=== PATIENT | female | born 1975 | race Caucasian/White ===

== ENCOUNTER 2019-01-21 04:16 | Inpatient (IN) | payer OTHER ==
[~2019-01-21] VITALS: Ht 149.9 cm; Wt 65.8 kg
[2019-01-21 04:18] VITALS: Ht 149.9 cm; Wt 65.8 kg
[2019-01-21 05:03] LABS: BASOPHIL % 0.8 % (0-2); PLATELET COUNT 163 x10^3mcL (130-400)
[2019-01-21 05:26] LABS: ALBUMIN 3.6 g/dL (3.4-5.0); BILIRUBIN TOTAL 0.71 mg/dL (0.20-1.00); CALCIUM 8.8 mg/dL (8.5-10.1); CARBON DIOXIDE 30.3 mmol/L (21-32); FREE T4 1.16 ng/dL (0.76-1.46); POTASSIUM SERUM 4.4 mmol/L (3.5-5.1); TOTAL PROTEIN, SERUM 8.1 g/dL (6.4-8.2)
[2019-01-21 05:29] LABS: CREATININE SERUM 6.2 mg/dL (0.6-1.0)
[2019-01-21] MEDS ORDERED: TOPROL XL25 MG (06:38)
[2019-01-21] MEDS ORDERED: RENA-VITE1 TAB PO (06:39)
[2019-01-21] MEDS ORDERED: HUMALOG100 U/ML (06:39)
[2019-01-21] MEDS ORDERED: LANTUS SOLOS100 U/M1 (06:39)
[2019-01-21 07:24] LABS: MAGNESIUM 2.3 mg/dL (1.8-2.4); PHOSPHOROUS 5.8 mg/dL (2.5-4.9)
[2019-01-21 11:26] VITALS: BP 150/60
[2019-01-21 16:45] VITALS: BP 170/80
[2019-01-21 22:00] VITALS: BP 202/67
[2019-01-22] VITALS (8 sets, daily range): BP systolic 150–212; BP diastolic 50–136
[2019-01-22 08:44] LABS: CARBON DIOXIDE 24.7 mmol/L (21-32); MAGNESIUM 2.5 mg/dL (1.8-2.4); PHOSPHOROUS 6.7 mg/dL (2.5-4.9); POTASSIUM SERUM 5.3 mmol/L (3.5-5.1)
[2019-01-22 08:52] LABS: CREATININE SERUM 8.3 mg/dL (0.6-1.0)
[2019-01-22 08:59] LABS: BASOPHIL % 0.1 % (0-2); PLATELET COUNT 130 x10^3mcL (130-400)
[2019-01-22 09:04] LABS: RED CELL DISTRIBUTION WIDTH 18.2 % (11.5-14.5)
[2019-01-23] VITALS (7 sets, daily range): BP systolic 149–175; BP diastolic 57–73
[2019-01-23 07:05] LABS: BASOPHIL % 0.7 % (0-2); PLATELET COUNT 249 x10^3mcL (130-400)
[2019-01-23 07:09] LABS: RED CELL DISTRIBUTION WIDTH 19.2 % (11.5-14.5)
[2019-01-23 08:24] LABS: CALCIUM 9.4 mg/dL (8.5-10.1); CARBON DIOXIDE 27.2 mmol/L (21-32); MAGNESIUM 2.5 mg/dL (1.8-2.4); POTASSIUM SERUM 4.5 mmol/L (3.5-5.1)
[2019-01-23 08:25] LABS: CREATININE SERUM 6.2 mg/dL (0.6-1.0)
[2019-01-23] MEDS ORDERED: NEURONTIN100 MG PO (10:05)
[2019-01-23] MEDS ORDERED: ZOF4 PO (10:05)
[2019-01-23 14:30] LABS: microscopic required? YES; urine erythrocyte 2+ (NEGATIVE)
== END 2019-01-23 15:53 | disposition home or self-care (01) | DRG 48 ==
LOC: ED 04:16 → DU 06:23 → MU 11:25 → DU 01-22 01:16
PROVIDERS: Emergency Medicine; ADMIT Internal Medicine
PROC: 5A1D70Z Performance of Urinary Filtration, Intermittent, Less than 6 Hours Per Day (ICD-10-PCS; principal; 2019-01-22)
DX: E11.40 Type 2 diabetes mellitus with diabetic neuropathy, unspecified (principal); E11.22 Type 2 diabetes mellitus with diabetic chronic kidney disease; I12.0 Hypertensive chronic kidney disease with stage 5 chronic kidney disease or end stage renal disease; G45.9 Transient cerebral ischemic attack, unspecified; N18.6 End stage renal disease; F41.9 Anxiety disorder, unspecified; D63.8 Anemia in other chronic diseases classified elsewhere; E11.65 Type 2 diabetes mellitus with hyperglycemia; Z99.2 Dependence on renal dialysis; Z79.84 Long term (current) use of oral hypoglycemic drugs; Z88.2 Allergy status to sulfonamides; Z88.1 Allergy status to other antibiotic agents; Z88.8 Allergy status to other drugs, medicaments and biological substances; Z91.018 Allergy to other foods; Z87.440 Personal history of urinary (tract) infections; Z79.899 Other long term (current) drug therapy
CPT/HCPCS: 82962; 83880; 84439; C9113; J0360; J1644; J7030; Q0092

== ENCOUNTER 2019-03-25 03:57 | Emergency (ER) | payer OTHER ==
[~2019-03-25] VITALS: Ht 149.9 cm; Wt 68.9 kg
[~2019-03-25 03:57] MED LIST: HUMALOG100 U/ML; LANTUS SOLOS100 U/M1; NEURONTIN100 MG PO; RENA-VITE1 TAB PO; TOPROL XL25 MG; ZOF4 PO
[2019-03-25 04:03] VITALS: Ht 149.9 cm; Wt 68.9 kg
[2019-03-25 04:46] LABS: PLATELET COUNT 129 x10^3mcL (130-400); RED CELL DISTRIBUTION WIDTH 19.3 % (11.5-14.5)
[2019-03-25 04:47] LABS: BASOPHIL % 0.5 % (0-2)
[2019-03-25 04:59] LABS: ALBUMIN 3.7 g/dL (3.4-5.0); BILIRUBIN TOTAL 0.94 mg/dL (0.20-1.00); CALCIUM 8.5 mg/dL (8.5-10.1); CARBON DIOXIDE 28.2 mmol/L (21-32); POTASSIUM SERUM 4.2 mmol/L (3.5-5.1); TOTAL PROTEIN, SERUM 7.6 g/dL (6.4-8.2)
[2019-03-25 05:01] LABS: CREATININE SERUM 6.5 mg/dL (0.6-1.0)
[2019-03-25 05:45] VITALS: BP 177/86
== END 2019-03-25 05:35 | disposition home or self-care (01) ==
LOC: ED 03:57
PROVIDERS: Emergency Medicine
DX: R53.1 Weakness (principal); D64.9 Anemia, unspecified; E11.22 Type 2 diabetes mellitus with diabetic chronic kidney disease; I12.0 Hypertensive chronic kidney disease with stage 5 chronic kidney disease or end stage renal disease; N18.6 End stage renal disease; Z99.2 Dependence on renal dialysis; Z88.2 Allergy status to sulfonamides; Z88.1 Allergy status to other antibiotic agents; Z88.8 Allergy status to other drugs, medicaments and biological substances
CPT/HCPCS: 36415; 83880; Q0092

== ENCOUNTER 2019-06-20 21:41 | Emergency (ER) | payer OTHER ==
[~2019-06-20] VITALS: Ht 149.9 cm; Wt 66.7 kg
[2019-06-20 21:45] VITALS: Ht 149.9 cm; Wt 66.7 kg
[2019-06-20 22:26] LABS: BASOPHIL % 0.2 % (0-2); PLATELET COUNT 161 x10^3mcL (130-400)
[2019-06-20 22:27] LABS: RED CELL DISTRIBUTION WIDTH 17.8 % (11.5-14.5)
[2019-06-20 22:41] LABS: ALBUMIN 3.7 g/dL (3.4-5.0); BILIRUBIN TOTAL 1.19 mg/dL (0.20-1.00); CARBON DIOXIDE 24.6 mmol/L (21-32); POTASSIUM SERUM 5.2 mmol/L (3.5-5.1); TOTAL PROTEIN, SERUM 7.9 g/dL (6.4-8.2)
[2019-06-20 22:51] LABS: CREATININE SERUM 10.3 mg/dL (0.6-1.0)
[2019-06-20 23:51] VITALS: BP 148/41
== END 2019-06-20 23:51 | disposition home or self-care (01) ==
LOC: ED 21:41
PROVIDERS: Emergency Medicine
DX: N39.0 Urinary tract infection, site not specified (principal); E11.22 Type 2 diabetes mellitus with diabetic chronic kidney disease; I12.0 Hypertensive chronic kidney disease with stage 5 chronic kidney disease or end stage renal disease; N18.6 End stage renal disease; Z88.2 Allergy status to sulfonamides; Z88.8 Allergy status to other drugs, medicaments and biological substances; Z91.018 Allergy to other foods; Z88.1 Allergy status to other antibiotic agents; Z98.890 Other specified postprocedural states
CPT/HCPCS: 36415; 83880; J0696

== ENCOUNTER 2019-07-24 17:18 | Emergency (ER) | payer OTHER ==
[~2019-07-24] VITALS: Ht 149.9 cm; Wt 65.3 kg
[2019-07-24 17:34] VITALS: Ht 149.9 cm; Wt 65.3 kg
[2019-07-24 18:17] LABS: BASOPHIL % 0.6 % (0-2); PLATELET COUNT 188 x10^3mcL (130-400)
[2019-07-24 18:28] LABS: rbc morphology (normal/abnorm) ABNORMAL (NORMAL)
[2019-07-24 18:35] LABS: ALBUMIN 3.5 g/dL (3.4-5.0); BILIRUBIN TOTAL 1.43 mg/dL (0.20-1.00); CALCIUM 8.2 mg/dL (8.5-10.1); CARBON DIOXIDE 28.8 mmol/L (21-32); POTASSIUM SERUM 3.8 mmol/L (3.5-5.1); TOTAL PROTEIN, SERUM 7.5 g/dL (6.4-8.2)
[2019-07-24 18:37] LABS: CREATININE SERUM 7.7 mg/dL (0.6-1.0)
[2019-07-24 20:37] VITALS: BP 164/71
== END 2019-07-24 20:37 | disposition home or self-care (01) ==
LOC: ED 17:18
PROVIDERS: Emergency Medicine
DX: D64.9 Anemia, unspecified (principal); R10.9 Unspecified abdominal pain; R53.1 Weakness; R19.7 Diarrhea, unspecified; R63.0 Anorexia; E11.22 Type 2 diabetes mellitus with diabetic chronic kidney disease; I12.0 Hypertensive chronic kidney disease with stage 5 chronic kidney disease or end stage renal disease; N18.6 End stage renal disease; Z99.2 Dependence on renal dialysis; Z88.2 Allergy status to sulfonamides; Z88.8 Allergy status to other drugs, medicaments and biological substances; Z88.6 Allergy status to analgesic agent; Z88.1 Allergy status to other antibiotic agents; Z91.018 Allergy to other foods
CPT/HCPCS: 36415; Q0092

== ENCOUNTER 2019-08-04 21:22 | Emergency (ER) | payer OTHER ==
[~2019-08-04] VITALS: Ht 149.9 cm; Wt 66.2 kg
[2019-08-04 21:25] VITALS: Ht 149.9 cm; Wt 66.2 kg
[2019-08-04 22:36] VITALS: BP 119/54
== END 2019-08-04 22:36 | disposition home or self-care (01) ==
LOC: ED 21:22
DX: I73.9 Peripheral vascular disease, unspecified (principal); E11.22 Type 2 diabetes mellitus with diabetic chronic kidney disease; I12.0 Hypertensive chronic kidney disease with stage 5 chronic kidney disease or end stage renal disease; N18.6 End stage renal disease; Z99.2 Dependence on renal dialysis; Z88.2 Allergy status to sulfonamides; Z88.1 Allergy status to other antibiotic agents; Z91.018 Allergy to other foods

== ENCOUNTER 2019-08-12 12:31 | Inpatient (IN) | payer OTHER ==
[~2019-08-12] VITALS: Ht 149.9 cm; Wt 63.5 kg
[2019-08-12 12:36] VITALS: Ht 149.9 cm; Wt 63.5 kg
[2019-08-12 13:20] LABS: BASOPHIL % 0.6 % (0-2); PLATELET COUNT 169 x10^3mcL (130-400); RED CELL DISTRIBUTION WIDTH 19.2 % (11.5-14.5)
--- NOTE | 2019-08-12 13:25 | NUR ---
DR WHITLOCK AT BEDSIDE FOR US IV PLACEMENT FOR CT SCAN.
[2019-08-12 13:28] LABS: CALCIUM 8.8 mg/dL (8.5-10.1); CARBON DIOXIDE 34.1 mmol/L (21-32); POTASSIUM SERUM 4.9 mmol/L (3.5-5.1)
[2019-08-12 13:29] LABS: CREATININE SERUM 6.5 mg/dL (0.6-1.0)
--- NOTE | 2019-08-12 14:46 | NUR ---
PATIENT OUT OF UNIT FOR CT SCAN AT THIS TIME//APR RN
--- NOTE | 2019-08-12 15:20 | NUR ---
PATIENT SATES SHE'S TAKING MEDS, BUT 'I DON'T REMEMBER THEM RIGHT NOW.//APR RN
--- NOTE | 2019-08-12 15:26 | NUR ---
REPORT GIVEN TO IFEOMA RN EXT [phone] FOR BED 208A. PATIENT AND DAUGHTER MADE AWARE OF AMISSION, VERBALIZED UNDERSTANDING, NO QUESTIONS AT THIS TIME//APR RN
[2019-08-12 15:32] LABS: MAGNESIUM 2.4 mg/dL (1.8-2.4); PHOSPHOROUS 5.7 mg/dL (2.5-4.9)
[2019-08-12 15:33] LABS: CHOLESTEROL/HDL RATIO 1.6
[2019-08-12 15:40] LABS: T3 TOTAL 0.71 ng/mL
[2019-08-12 15:42] LABS: FREE T4 0.99 ng/dL (0.76-1.46); FREE THYROXINE INDEX 2.2 ug/dL (1.4-4.5); T4(THYROXINE) 5.7 ug/dL (4.7-13.3)
--- NOTE | 2019-08-12 15:50 | NUR ---
RECEIVED PT VIA GURNEY FROM E/D, ACCOMPANIED BY TRANSPORTER. PT A/A/O X 4, INDIFFERENT BUT COOPERATIVE TO CARE AT THIS TIME; OD BLIND W/ PTOSIS (CHRONIC). AMBULATORY, NO GAIT OR BALANCE IMPAIRMENT NOTED; STATED THAT SHE HAD EPISODE OF ACCIDENTAL FALL WITHIN THIS MONTH; FALL RISK PROTOCOL IN PLACE. DENIES CHEST PAIN OR DISCOMFORT AT THIS TIME. SCD BY BEDSIDE. NO ACUTE RESPIRATORY DISTRESS NOTED. ANURIC, ON H/D , LAST DIALYSIS 08/11/19, LETY CATH TO L UPPER CHEST WALL, DRESSING CDI. PT STATED THAT SHE HAS SKIN TEAR TO R ANTERIOR THIGH; ISLAND DRESSING CDI, BUT PT REFUSES TO REMOVE IT TO INSPECT THE WOUND. IV SITES RH 22G, CDI, AND LAC 18G, CDI. ORIENTED PT TO ROOM, BED CONTROLS, CALL LIGHT SYSTEM. SIDE RAILS UP X 2, BED IN LOW POSITION. WILL ENDORSE TO [facility] DIA.
[2019-08-12] MEDS ORDERED: ATORVASTATIN CA40 M1 PO (16:15)
[2019-08-12] MEDS ORDERED: BANOPHEN25 M2 PO (16:15)
[2019-08-12] MEDS ORDERED: ASPIR 8181 MG PO (16:15)
[2019-08-12] MEDS ORDERED: CARVEDILOL6.25 M1 PO (16:16)
[2019-08-12] MEDS ORDERED: HYDRALAZINE HCL25 MG PO (16:17)
[2019-08-12] MEDS ORDERED: NOR10T PO (16:17)
[2019-08-12 16:18] VITALS: BP 186/64
[2019-08-12] MEDS ORDERED: LOPERAMIDE HCL2 MG PO (16:19)
[2019-08-12] MEDS ORDERED: LORAZEPAM1 MG PO ×2 (16:20→16:21)
[2019-08-12] MEDS ORDERED: CLARITIN10 MG PO (16:20)
[2019-08-12] MEDS ORDERED: PROCARDIA XL90 MG PO (16:21)
[2019-08-12] MEDS ORDERED: QVAR REDIHALE10.6 G1 IH (16:22)
[2019-08-12] MEDS ORDERED: RESTASIS0.051 OD (16:24)
[2019-08-12] MEDS ORDERED: VENTOLIN H0.09 MG/A1 INH (16:25)
--- NOTE | 2019-08-12 16:39 | NUR ---
PATIENT CAME UP FROM THE ER AND THE BP IS ELEVATED AGAIN. SHE HAS BEEN SLEEPY DUE TO BENADRYL WAS GIVEN IN THE ER. SHE STATES SHE HAS SO SLEEPY AND SHE CANT KEEP HER EYES OPEN. INTACT AND HEPLOCKED AT THIS TIME. SHE IS WITH DIMINISHED BREATH SOUND AND LYING ON THE SIDE OF HER SHUNT. SHE HAS DARK COLORATION TO THE LOWER EXTREMITES AND A WAXEY APPEARANCE TO THE SKIN NOTED. SHE IS SOMEWHAT JAUNDICED TO THE SKIN AND HAS BEEN AMBULATORY. SHE DENIES HEADACHE PAIN AND FEELINGS OF PRESSURE VITALS AT THIS TIME AT 186/64, 104, 98.2, 16. PATIENT IS TOO TIRED TO BE ANXIOUS AND TOO SLEEPY TO BE IN PAIN AT THIS TIME. [facility] CALL LIGHT WITHIN REACH AND JUST WANTS TO SLEEP. PATIENT HAS ORDERS FO JAKE, C AND S AND DRUG URINE SCREEN BUT PATIENT IS ANUREIC AT THIS TIME. SHE WAS DIALYSIZED YESTERDAY.
--- NOTE | 2019-08-12 17:44 | NUR ---
[employer] [facility] MADE AWARE THAT PATIENT HAS HD ORDER FOR TODAY AND TOMORROW. ATTENDING NURSE IFEOMA HIRSCH.
--- NOTE | 2019-08-12 18:09 | NUR ---
DIALYSIS NURSE DI CALLED FOR HER TO SCHEDULE DIALYSIS TODAY. PATIENT FIVE HYDROLIZINE FOR ELEVATED BP. PATIENT STILL VERY SLEEPY BUT NO COMPLAINTS OF PAIN AT THIS TIME.
--- NOTE | 2019-08-12 19:40 | NUR ---
RECEIVED REPORT FROM DAY SHIFT RN. PT RESTING IN BED COMFORTABLY. AA&O X4. NO SOB NOTED ON ROOM AIR. NO C/O CHEST PAIN. NO DISTRESS NOTED. IV TO LAC, PATENT AND INTACT. QUITON CATH TO LEFT UPPER CHEST, INTACT. PT STATES SKIN TEAR TO RIGHT ANTERIOR THIGH, ISLAND DRESSING C/D/I. PT DOES NOT WANT TO TAKE OFF THE DRESSING. SAFETY MEASURES IN PLACE. BED IN LOWEST POSITION. SIDE RAILS UP X2. INSTRUCTED PT TO USE THE CALL LIGHT FOR ASSISTANCE.
[2019-08-12 20:32] VITALS: BP 184/61
--- NOTE | 2019-08-12 21:47 | NUR ---
PT STATES HER O2 SAT DROPS WHEN SHE'S SLEEPING SO SHE USES 2L OXYGEN AT NIGHT. ON O2 2L VIA NC AT THIS TIME.
--- NOTE | 2019-08-13 00:40 | NUR ---
HEMODIALYSIS COMPLETED. 1.5 L OUT. BP 187/[address] SMITH MADE AWARE. WAITING FOR NEW ORDERS.
--- NOTE | 2019-08-13 01:31 | NUR ---
HYDRALAZINE PO GIVEN PER ORDER. BP 207/75 HR 77.
[2019-08-13 05:20] VITALS: BP 180/60
[2019-08-13 06:25] LABS: BASOPHIL % 0.4 % (0-2); PLATELET COUNT 154 x10^3mcL (130-400)
--- NOTE | 2019-08-13 06:49 | NUR ---
PT RESTED WELL DURING SHIFT. NO SOB ON O2 2L VIA NC. NO C/O PAIN. BP 180/60 HR 63. HYDRALAZINE 10 MG PO GIVEN PER ORDER. NO C/O CHEST PAIN. NO DISTRESS NOTED. SAFETY MEASURES MAINTAINED. ALL NEEDS ATTENDED TO. CALL LIGHT WITHIN REACH. WILL ENDORSE CONTINUITY OF CARE TO ONCOMING RN.
[2019-08-13 07:24] LABS: RED CELL DISTRIBUTION WIDTH 20.3 % (11.5-14.5)
[2019-08-13 07:25] LABS: rbc morphology (normal/abnorm) ABNORMAL (NORMAL)
--- NOTE | 2019-08-13 08:00 | NUR ---
RECIEVED PATEINT AWAKE AND OOB AND TOLERATE DIET AND FLUIDS WELL. SHE DENIES PAIN AT THIS TIME. WILL CONTINUE TO MONITOR. SHE IS REFUSING SOME MEDICATION AND WANTS PLAVIX FOR HER STENT PLACEMENT. THIS MEDICATION WAS NOT ON HER LIST BUT WILL CALL THE RESIDENT FOR ORDERS.
[2019-08-13 08:33] LABS: CALCIUM 8.9 mg/dL (8.5-10.1); CARBON DIOXIDE 31.7 mmol/L (21-32); CREATININE SERUM 3.9 mg/dL (0.6-1.0); PHOSPHOROUS 4.3 mg/dL (2.5-4.9); POTASSIUM SERUM 4.1 mmol/L (3.5-5.1)
[2019-08-13 08:38] VITALS: BP 185/62
--- NOTE | 2019-08-13 09:54 | NUR ---
PATIENT WANT TO LEAVE. CALLED THE RESIDENT ABOUT HER PLAVIX AND NOW THE PATIENT WANTS TO GO HOME OR SHE WILL SIGN OUT. [facility] PAGED TWICE NOW. AWAITING CALL BACK. PATIENT RECIEVED HER MEDICATIONS AND REFUSED THE [facility] AND SHE HAS YET TO RECEIVE THE PLAVIX. SHE HAS BEEN ON THE PHONE AND NOW WANTS TO LEAVE. HER LUNGS ARE DIMINISHED BUT DNIES PAIN OR RESPRIATORY DISTRSS. SHE HAS HAD AN ELEVATED BP AND HAS BEEN DIALYSED LAST NIGHT AND 1.5 LITERS REMOVED. PATIENT IS GIVING THE IMPRESSION SHE IS NON COMPLIANT WITH HER MEDICATIONS AND HE DIET SHE IS PICKING AND CHOOSING HER MEDICATIONS MAKING IT HARD TO SEE IF THE MEDICATION ARE GONITN TO BE EFFECTIVE. WILL CONTINUE TO AWAIT CALL BACK AT THIS TIME
--- NOTE | 2019-08-13 12:01 | NUR ---
BLOOD SUGAR AT [address] [facility] [employer] [employer] INDICATED. PATIENT HAS DESIDED TO WAIT FO THE SHADING PAINTER TO SEEM SHE IS REFUSING THE DIALYSIS ORDER AND STATES SHE HAS HAD TOO MUCH AND WEAK FROM THIS. PATIENT IS AWARE OF THE NEED FOR DIALSYIS BUT DOES NOT WANT OR FEEL SHE NEEDS AT THIS TIME.
--- NOTE | 2019-08-13 14:46 | NUR ---
GAVE PLAVIX ORDERED AND NOW PATIENT HAS A DISCHARGE ORDER. WILL DISCHARGE HOEM AND WAS SEEN BY THE RESIDENT ASND THE NEPHROLOGY.
[2019-08-13 14:51] VITALS: BP 185/62
--- NOTE | 2019-08-13 15:35 | NUR ---
PATIENT SEEN BY NEPHROLOGY AND PATIENT GIVEN HER DISCARGE PAPERWORK AND IV REMOVED.
== END 2019-08-13 15:50 | disposition home or self-care (01) | DRG 199 ==
LOC: ED 12:31 → MU 14:45
PROVIDERS: Emergency Medicine; ADMIT General Practice
PROC: 5A1D70Z Performance of Urinary Filtration, Intermittent, Less than 6 Hours Per Day (ICD-10-PCS; principal; 2019-08-12)
DX: I16.0 Hypertensive urgency (principal); E11.22 Type 2 diabetes mellitus with diabetic chronic kidney disease; N18.6 End stage renal disease; E87.70 Fluid overload, unspecified; I12.0 Hypertensive chronic kidney disease with stage 5 chronic kidney disease or end stage renal disease; Z99.2 Dependence on renal dialysis; E78.00 Pure hypercholesterolemia, unspecified; Z88.8 Allergy status to other drugs, medicaments and biological substances; H54.61 Unqualified visual loss, right eye, normal vision left eye; Z88.2 Allergy status to sulfonamides; H93.13 Tinnitus, bilateral; I25.10 Atherosclerotic heart disease of native coronary artery without angina pectoris; E83.39 Other disorders of phosphorus metabolism; D64.9 Anemia, unspecified
CPT/HCPCS: 82962; 83880; 84439; G0378; J0780; J1200; J3535; J7030; Q9967

== ENCOUNTER 2020-05-24 05:01 | Inpatient (IN) | payer OTHER ==
[~2020-05-24] VITALS: Ht 149.9 cm; Wt 63.5 kg
[~2020-05-24 05:01] MED LIST changes: +ASPIR 8181 MG PO; +ATORVASTATIN CA40 M1 PO; +BANOPHEN25 M2 PO; +CARVEDILOL6.25 M1 PO; +CLARITIN10 MG PO; +HYDRALAZINE HCL25 MG PO; +LOPERAMIDE HCL2 MG PO; +LORAZEPAM1 MG PO; +NOR10T PO; +PROCARDIA XL90 MG PO; +QVAR REDIHALE10.6 G1 IH; +RESTASIS0.051 OD; +VENTOLIN H0.09 MG/A1 INH
[2020-05-24 05:08] VITALS: Ht 149.9 cm; Wt 63.5 kg
[2020-05-24 07:00] LABS: BASOPHIL % 0.7 % (0-2); PLATELET COUNT 191 x10^3mcL (130-400)
[2020-05-24 07:06] LABS: RED CELL DISTRIBUTION WIDTH 17.6 % (11.5-14.5)
[2020-05-24 07:11] LABS: BILIRUBIN TOTAL 0.44 mg/dL (0.20-1.00); CALCIUM 11.4 mg/dL (8.5-10.1); CARBON DIOXIDE 28.5 mmol/L (21-32)
[2020-05-24 07:20] LABS: FREE T4 1.04 ng/dL (0.76-1.46); FREE THYROXINE INDEX 2.2 ug/dL (1.4-4.5); T4(THYROXINE) 6.8 ug/dL (4.7-13.3)
[2020-05-24 07:23] LABS: CK-MB 2.7 ng/mL (0-3.6)
[2020-05-24 07:25] LABS: ALBUMIN 3.1 g/dL (3.4-5.0)
[2020-05-24 07:30] LABS: POTASSIUM SERUM 5.6 mmol/L (3.5-5.1)
[2020-05-24 07:32] LABS: CREATININE SERUM 8.5 mg/dL (0.6-1.0)
[2020-05-24 07:52] LABS: C REACTIVE PROTEIN 3.5 mg/dL (<=0.9)
[2020-05-24 07:57] LABS: T3 TOTAL 0.71 ng/mL
[2020-05-24 08:10] LABS: ERYTHROCYTE SED RATE 69 mm/hr (0-20)
[2020-05-24 09:53] LABS: MAGNESIUM 3.1 mg/dL (1.8-2.4)
[2020-05-24 09:54] LABS: CHOLESTEROL/HDL RATIO 2.4
[2020-05-24 10:25] LABS: PHOSPHOROUS 10.2 mg/dL (2.5-4.9)
[2020-05-24 16:09] VITALS: BP 176/67
[2020-05-24 20:25] VITALS: BP 136/92
[2020-05-25 08:30] LABS: BASOPHIL % 0.4 % (0-2); PLATELET COUNT 179 x10^3mcL (130-400)
[2020-05-25 08:32] VITALS: BP 187/69
[2020-05-25 08:50] LABS: RED CELL DISTRIBUTION WIDTH 17.9 % (11.5-14.5)
[2020-05-25 10:05] LABS: CALCIUM 9.2 mg/dL (8.5-10.1); CARBON DIOXIDE 26.5 mmol/L (21-32)
== END 2020-05-25 13:44 | disposition left against medical advice (07) | DRG 425 ==
LOC: ED → DU 08:53
PROVIDERS: Emergency Medicine; Specialist; ADMIT Family Medicine; ATTEND Family Medicine
DX: E87.5 Hyperkalemia (principal); E11.22 Type 2 diabetes mellitus with diabetic chronic kidney disease; I12.0 Hypertensive chronic kidney disease with stage 5 chronic kidney disease or end stage renal disease; N18.6 End stage renal disease; Z99.2 Dependence on renal dialysis; I25.10 Atherosclerotic heart disease of native coronary artery without angina pectoris; Z88.2 Allergy status to sulfonamides; Z88.8 Allergy status to other drugs, medicaments and biological substances; Z90.49 Acquired absence of other specified parts of digestive tract; R55 Syncope and collapse; D63.1 Anemia in chronic kidney disease; E11.65 Type 2 diabetes mellitus with hyperglycemia; Z20.828 Contact with and (suspected) exposure to other viral communicable diseases; Z53.29 Procedure and treatment not carried out because of patient's decision for other reasons
CPT/HCPCS: 36600; 82962; 83880; 84439; 97116-GP; G0378; J0456; J1200; J1644; J1815; J7030; Q0092; Q0163; U0003-CS